=== PATIENT | male | born 1965 | race Caucasian/White ===

== ENCOUNTER 2023-07-03 17:59 | Emergency (ER) | payer SELFPAY ==
[2023-07-03] MEDS ORDERED: Lidocaine 1% PF 5 ML VIAL ONE (19:15)
[2023-07-03] MEDS ORDERED: Boostrix 0.5 ML (Tdap) VIAL (>/=7 yrs of age) ONE (19:15)
[2023-07-03] MEDS ORDERED: Bacitracin 1 PK ONE (19:15)
== END 2023-07-03 19:45 | disposition home or self-care (01) ==
LOC: MADERS 17:59
DX: S61.412A Laceration without foreign body of left hand, initial encounter (principal); I10 Essential (primary) hypertension; L40.9 Psoriasis, unspecified; F17.200 Nicotine dependence, unspecified, uncomplicated; W26.8XXA Contact with other sharp object(s), not elsewhere classified, initial encounter
CPT/HCPCS: 12001; 90471; 90715